=== PATIENT | female | born 1970 | race Caucasian/White ===

== ENCOUNTER 2023-07-19 10:14 | Outpatient (CLI) | payer OTHER, SELFPAY ==
--- NOTE | 2023-07-19 10:15 | MR_ITS ---
[address] [address] Phone:?[phone] Fax:?[phone] Referring Physician Information: Hector De La O [address] [facility] [address] Phone:?[phone] Fax:?[phone] Patient:?Patience Quezada D.O.B:?1970 Sex:?Female Phone:?[phone] [facility] MRN:?[id number] Exam Date:?07/19/2023 EXAM: MRI of the LEFT FOOT TALONAVICULAR JOINT THROUGH DISTAL PHALANGES CLINICAL HISTORY: Chronic left foot pain. COMPARISONS: Plain radiographs 07/07/2023. Plain radiographs 02/08/2021. TECHNICAL: MR sequences of the left foot talonavicular joint through distal phalanges: Axials: PD, T2, STIR Coronals: T1, STIR Sagittals: PD, T2 Contrast: None Sedation: None FINDINGS: Osseous structures and joints: No fracture is seen. There is mild edema-like signal within a bipartite tibial sesamoid. There is no subluxation, dislocation, joint space narrowing, or erosive change. Ligaments: The Lisfranc and collateral ligaments are intact. Myotendinous structures: The imaged portions of the extensor and flexor tendons are unremarkable. No muscle strain, tear, or atrophy is present. Soft tissues: There is a moderate amount of fluid within the second intermetatarsal bursa. There are small amounts of fluid within the first and third intermetatarsal bursae. IMPRESSION: 1. A moderate amount of fluid within the second intermetatarsal bursae could reflect intermetatarsal bursitis in the appropriate clinical setting. Small amounts of fluid within the first and third intermetatarsal bursae are of uncertain clinical significance; correlate with any clinical evidence of intermetatarsal bursitis. 2. Mild edema-like signal within a bipartite tibial sesamoid may be degenerative in etiology or could reflect sequela of repetitive microtrauma/stress injury/sesamoiditis but is nonspecific and of uncertain clinical significance. 3. No fracture, subluxation/dislocation, ligamentous injury, or tendinous pathology of the imaged portions of the left foot. RCB Electronically signed on 07/19/2023 1:08:00 PM by Cruzito Salinas M.D.
== END 2023-07-19 10:15 | disposition home or self-care (01) ==
LOC: MRI 10:15
PROVIDERS: PCP Physician Assistant; Visit Provider Physician Assistant
DX: M79.672 Pain in left foot (principal); M77.52 Other enthesopathy of left foot and ankle; S99.922A Unspecified injury of left foot, initial encounter
CPT/HCPCS: 73718

== ENCOUNTER 2024-03-19 14:50 | Outpatient (CLI) | payer OTHER, SELFPAY | END 2024-03-19 14:51 | disposition home or self-care (01) | LOC: INJ CL 14:50 | PROVIDERS: PCP Physician Assistant; Visit Provider Family Medicine | DX: M17.12 Unilateral primary osteoarthritis, left knee (principal); M25.562 Pain in left knee | CPT/HCPCS: 64454 ==

== ENCOUNTER 2024-04-09 12:05 | Outpatient (CLI) | payer OTHER, SELFPAY | END 2024-04-09 12:06 | disposition home or self-care (01) | LOC: INJ CL 12:06 | PROVIDERS: PCP Physician Assistant; Visit Provider Family Medicine | DX: M17.12 Unilateral primary osteoarthritis, left knee (principal); M25.562 Pain in left knee; G89.29 Other chronic pain | CPT/HCPCS: 64624; J2250; J3010 ==